=== PATIENT | female | born 1970 | race Caucasian/White ===

== ENCOUNTER 2018-08-06 09:49 | Emergency (ER) | payer MEDICAID ==
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
[2018-08-06 15:00] VITALS: BP 130/78; PULSE 72; RESP 16; TEMP 98; O2SAT 99
== END 2018-08-06 14:39 | disposition home or self-care (01) ==
LOC: H.ER 09:49
DX: S39.012A Strain of muscle, fascia and tendon of lower back, initial encounter (principal); S09.90XA Unspecified injury of head, initial encounter; V43.52XA Car driver injured in collision with other type car in traffic accident, initial encounter